=== PATIENT | male | born 2000 | race Caucasian/White ===

== ENCOUNTER 2022-04-21 09:17 | Emergency (ER) | payer OTHER ==
[~2022-04-21] VITALS: Ht 172.7 cm; Wt 90.7 kg
[2022-04-21 09:24] VITALS: BP 116/85
--- NOTE | 2022-04-21 09:51 | ED Upper Extremity ---
General Stated Complaint: LACERATION ON FINGER Source: patient Exam Limitations: no limitations History of Present Illness Date Seen by Provider: Apr 21, 2022 Time Seen by Provider: 09:35 Initial Comments Skin avulsion Physical Exam Vital Signs Capillary Refill : Height, Weight, BMI Height: '" Weight: lbs. oz. kg; BMI Method: Departure Impression Primary Impression: Avulsion, finger tip Qualified Codes: S61.209A - Unspecified open wound of unspecified finger without damage to nail, initial encounter Disposition: 01 HOME, SELF-CARE Condition: Improved Departure-Patient Inst. Decision time for Depature: 09:46 Referrals: NO,LOCAL PHYSICIAN (PCP/Family) Primary Care Physician Patient Instructions: SKIN AVULSION Add. Discharge Instructions: Keep your finger clean and dry except for normal showering and handwashing. Do not submerge for at least 10 days. The wound should scab over within the next few days and heal with new skin covering in 2-3 weeks. You may take Tylenol and/or ibuprofen for pain. Monitor for signs of infection such as increasing redness, fever, or puslike drainage. Return to care promptly if you notice the symptoms. Until the wound is completely scabbed over, keep covered whenever active or in dirty environments. Cover with a clean gauze dressing. You may use the nonstick dressing provided. If you run out of this dressing, you may use Vaseline or antibiotic ointment. You may use the AlumaFoam splint to additionally help protect the wound from bumping objects. Avoid any strenuous activity with the left hand for at least 48 hours. Leave wound open to air when awake and at rest after the first 48 hours. Call with questions or concerns. Return to care if you have worsening symptoms. Work/School Note: Work Release Form Date Seen in the Emergency Department: Apr 21, 2022 Return to Work: Apr 21, 2022 Other Restrictions Listed Below: No strenuous activity with left hand for 48 hours. Restrictions: Were dressing and finger protection when active until healed. DANAE BROWN MD Apr 21, 2022 09:51
== END 2022-04-21 09:58 | disposition home or self-care (01) ==
LOC: ER 09:22
DX: S61.209A Unspecified open wound of unspecified finger without damage to nail, initial encounter (principal); X58.XXXA Exposure to other specified factors, initial encounter